=== PATIENT | male | born 1950 | race Caucasian/White ===

== ENCOUNTER 2018-03-14 07:05 | Emergency (ER) | payer MEDICARE, MEDICAID, SELFPAY ==
[2018-03-14 07:09] VITALS: BP 158/88; PULSE 86; RESP 16; TEMP 36.7; O2SAT 97
--- NOTE | 2018-03-14 07:41 | W.ED.GENAD ---
Discharge Plan Disposition Patient Disposition: HOME Discharge Details Chief Complaint: Orthopedic Clinical Impression: Injury of toe on right foot Primary Care Provider: Liz Gonzales ED Provider: Woo Henao Home Meds and New Rx's Prescriptions: Continue multivitamin [Daily Multi-Vitamin] 1 EACH tablet 1 tab DAILY RF: 0 atorvastatin [Lipitor] 20 MG tablet 80 mg PO DAILY RF: 0 aspirin [Aspir-81] 81 MG tablet,delayed release (DR/EC) 81 mg PO DAILY RF: 0 lisinopril [Zestril] 20 MG tablet 20 mg PO DAILY RF: 0 metoprolol succinate 25 MG tablet extended release 24 hr 25 mg PO DAILY RF: 0 magnesium 250 mg Tablet 1 tab PO DAILY RF: 0 Discharge Instructions Instructions: Toe Fracture (ED) Additional Instructions: Please take ibuprofen 400mg every 6 hours as needed for pain. Keep toes taped together for 3 weeks. If pain persists or worsens, return to the ER or see podiatry. Your blood pressure was slightly elevated today. Continue to monitor your blood pressure and follow-up with Dr. Bailey. Referrals: Parvin Bailey [ NON-[facility] STAFF PHYSICIAN] - Discharge Data Discharge Date/Time-TO BE ENTERED AT DEPARTURE: 03/14/18 07:43 Medical Decision Making 67yo m with left 3rd toe injury. Distal neuro intact. I recommended the patient have an xray to assess for fracture or other concerning disease. Patient declined xray or any other intervention or treatment. Patient verbalized understanding of my concern and has decisional making capacity to refuse treatment. Patient agreeable to neto taping. 3rd toe splint applied by me: taped to 2nd toe. N/V intact post splint application. Patient advised to wear stiff shoes. I offered crutches and patient refused. HPI General Mode of arrival: ambulatory. Date/Time Provider Initiated Documentation: 03/14/18 07:34. Limitations to Documentation: no limitations. Information obtained by: patient. HPI Narrative: 67yo m here with right 3rd toe injury. Patient notes that he stubbed his toe last night walking to the bathroom. Initially distal toe was angled laterally and painful. Patient pulled on toe and reduced it to normal aligment. Pain resolved. No associated numbness. Related Data Home Medications Medication Instructions Recorded Confirmed aspirin [Aspir-81] 81 mg PO DAILY 02/28/14 03/14/18 atorvastatin [Lipitor] 80 mg PO DAILY 02/28/14 03/14/18 multivitamin [Daily Multi-Vitamin] 1 tab DAILY 02/28/14 03/14/18 lisinopril [Zestril] 20 mg PO DAILY 12/01/17 03/14/18 metoprolol succinate 25 mg PO DAILY 12/01/17 03/14/18 magnesium 1 tab PO DAILY 03/14/18 03/14/18 Allergies Allergy/AdvReac Type Severity Reaction Status Date / Time No Known Allergies Allergy Unverified 12/01/17 08:19 General Stated Complaint: Orthopedic VANI: 4 Review of Systems Musculoskeletal Reports as per HPI [facility] Medical History Hypertension (Chronic) Social History Smoking/Tobacco Use Status: Former Tobacco Use Exam Const General: no acute distress Extrem Left lower extremity: foot (ttp mid 3rd digit with mild swelling and no deformity) Details: tenderness and other (distal sensation intact and able to wiggle 3rd toe) Course Vital Signs Temperature 36.7 C 03/14/18 07:09 Pulse 86 03/14/18 07:09 Respiratory Rate 16 03/14/18 07:09 Blood Pressure 158/88 H 03/14/18 07:09 Pulse Oximetry 97 03/14/18 07:09 Temperature 36.7 C 03/14/18 07:09 Temperature Source Temporal Artery Scan 03/14/18 07:09 Pulse 86 03/14/18 07:09 Respiratory Rate 16 03/14/18 07:09 Blood Pressure 158/88 H 03/14/18 07:09 Blood Pressure Position Sitting 03/14/18 07:09 Pulse Oximetry 97 03/14/18 07:09 Oxygen Delivery Method Room Air 03/14/18 07:09 Oxygen Flow Rate 0 03/14/18 07:09 Pain Level 0 03/14/18 07:09
--- NOTE | 2018-03-14 07:55 | ED.GENADUL_ITS ---
Discharge Plan Disposition Patient Disposition: HOME Discharge Details Chief Complaint: Orthopedic Clinical Impression: Injury of toe on right foot Primary Care Provider: Liz Gonzales ED Provider: Woo Henao Home Meds and New Rx's Prescriptions: Continue multivitamin [Daily Multi-Vitamin] 1 EACH tablet 1 tab DAILY RF: 0 atorvastatin [Lipitor] 20 MG tablet 80 mg PO DAILY RF: 0 aspirin [Aspir-81] 81 MG tablet,delayed release (DR/EC) 81 mg PO DAILY RF: 0 lisinopril [Zestril] 20 MG tablet 20 mg PO DAILY RF: 0 metoprolol succinate 25 MG tablet extended release 24 hr 25 mg PO DAILY RF: 0 magnesium 250 mg Tablet 1 tab PO DAILY RF: 0 Discharge Instructions Instructions: Toe Fracture (ED) Additional Instructions: Please take ibuprofen 400mg every 6 hours as needed for pain. Keep toes taped together for 3 weeks. If pain persists or worsens, return to the ER or see podiatry. Your blood pressure was slightly elevated today. Continue to monitor your blood pressure and follow-up with Dr. Bailey. Referrals: Parvin Bailey [ NON-[facility] STAFF PHYSICIAN] - Discharge Data Discharge Date/Time-TO BE ENTERED AT DEPARTURE: 03/14/18 07:43 Medical Decision Making 67yo m with left 3rd toe injury. Distal neuro intact. I recommended the patient have an xray to assess for fracture or other concerning disease. Patient declined xray or any other intervention or treatment. Patient verbalized understanding of my concern and has decisional making capacity to refuse treatment. Patient agreeable to neto taping. 3rd toe splint applied by me: taped to 2nd toe. N/V intact post splint application. Patient advised to wear stiff shoes. I offered crutches and patient refused. HPI General Mode of arrival: ambulatory . Date/Time Provider Initiated Documentation: 03/14/18 07:34 . Limitations to Documentation: no limitations . Information obtained by: patient . HPI Narrative: 67yo m here with right 3rd toe injury. Patient notes that he stubbed his toe last night walking to the bathroom. Initially distal toe was angled laterally and painful. Patient pulled on toe and reduced it to normal aligment. Pain resolved. No associated numbness. Related Data Home Medications Medication Instructions Recorded Confirmed aspirin [Aspir-81] 81 mg PO DAILY 02/28/14 03/14/18 atorvastatin [Lipitor] 80 mg PO DAILY 02/28/14 03/14/18 multivitamin [Daily Multi-Vitamin] 1 tab DAILY 02/28/14 03/14/18 lisinopril [Zestril] 20 mg PO DAILY 12/01/17 03/14/18 metoprolol succinate 25 mg PO DAILY 12/01/17 03/14/18 magnesium 1 tab PO DAILY 03/14/18 03/14/18 Allergies Allergy/AdvReac Type Severity Reaction Status Date / Time No Known Allergies Allergy Unverified 12/01/17 08:19 General Stated Complaint: Orthopedic VANI: 4 Review of Systems Musculoskeletal Reports as per HPI [facility] Medical History Hypertension (Chronic) Social History Smoking/Tobacco Use Status: Former Tobacco Use Exam Const General: no acute distress Extrem Left lower extremity: foot (ttp mid 3rd digit with mild swelling and no deformity) Details: tenderness and other (distal sensation intact and able to wiggle 3rd toe) Course Vital Signs Temperature 36.7 C 03/14/18 07:09 Pulse 86 03/14/18 07:09 Respiratory Rate 16 03/14/18 07:09 Blood Pressure 158/88 H 03/14/18 07:09 Pulse Oximetry 97 03/14/18 07:09 Temperature 36.7 C 03/14/18 07:09 Temperature Source Temporal Artery Scan 03/14/18 07:09 Pulse 86 03/14/18 07:09 Respiratory Rate 16 03/14/18 07:09 Blood Pressure 158/88 H 03/14/18 07:09 Blood Pressure Position Sitting 03/14/18 07:09 Pulse Oximetry 97 03/14/18 07:09 Oxygen Delivery Method Room Air 03/14/18 07:09 Oxygen Flow Rate 0 03/14/18 07:09 Pain Level 0 03/14/18 07:09
== END 2018-03-14 07:43 | disposition home or self-care (01) ==
LOC: ER 07:45
PROVIDERS: Emergency Provider Student in an Organized Health Care Education/Training Program
DX: S99.921A Unspecified injury of right foot, initial encounter (principal); W22.8XXA Striking against or struck by other objects, initial encounter; Z53.29 Procedure and treatment not carried out because of patient's decision for other reasons; I10 Essential (primary) hypertension
CPT/HCPCS: 99281; 99282

== ENCOUNTER 2018-03-14 15:39 | Emergency (ER) | payer MEDICARE, MEDICAID, SELFPAY ==
[2018-03-14 15:45] VITALS: BP 140/81; PULSE 63; RESP 18; TEMP 36.7; O2SAT 97
--- NOTE | 2018-03-14 16:01 | W.ED.GENAD ---
Discharge Plan Disposition Patient Disposition: HOME Condition: Good Discharge Details Chief Complaint: Orthopedic Clinical Impression: Toe fracture, right Primary Care Provider: Liz Gonzales ED Provider: Tobias Onofre Home Meds and New Rx's Prescriptions: Continue multivitamin [Daily Multi-Vitamin] 1 EACH tablet 1 tab DAILY RF: 0 atorvastatin [Lipitor] 20 MG tablet 80 mg PO DAILY RF: 0 aspirin [Aspir-81] 81 MG tablet,delayed release (DR/EC) 81 mg PO DAILY RF: 0 lisinopril [Zestril] 20 MG tablet 20 mg PO DAILY RF: 0 metoprolol succinate 25 MG tablet extended release 24 hr 25 mg PO DAILY RF: 0 magnesium 250 mg Tablet 1 tab PO DAILY RF: 0 Medical Decision Making 67 yo male states he hit his right foot at home while walking last night, did not fall or hit head or have other injuries. HAs had the toe neto taped. I suspect a toe fx and doesn't appear displaced. I offered an xray to confirm but after discussion about how even if it is broken there is no intervention normally done he declined at this time to have an xray. ADvised weight bearing as tolerated and f/u with pcp. He did not want to wait for instructions Differential Diagnosis right middle toe fx vs contusion HPI General Mode of arrival: ambulatory. Date/Time Provider Initiated Documentation: 03/14/18 15:52. Limitations to Documentation: no limitations. Information obtained by: patient. History of Present Illness 67 year old M presents to the emergency department with the chief complaint of right middle toe pain, described as moderate, with intensity rated at 4. Quality is described as aching, and is localized to the right and lower extremity. Patient reports no radiation. Patient started experiencing this day(s) (1) and it has been constant. No relieving factors improve symptom(s), No exacerbating factors reported . Patient notes no other symptoms.. Patient did receive the following treatments prior to arrival, none Related Data Home Medications Medication Instructions Recorded Confirmed aspirin [Aspir-81] 81 mg PO DAILY 02/28/14 03/14/18 atorvastatin [Lipitor] 80 mg PO DAILY 02/28/14 03/14/18 multivitamin [Daily Multi-Vitamin] 1 tab DAILY 02/28/14 03/14/18 lisinopril [Zestril] 20 mg PO DAILY 12/01/17 03/14/18 metoprolol succinate 25 mg PO DAILY 12/01/17 03/14/18 magnesium 1 tab PO DAILY 03/14/18 03/14/18 Allergies Allergy/AdvReac Type Severity Reaction Status Date / Time No Known Allergies Allergy Unverified 12/01/17 08:19 General Stated Complaint: Orthopedic VANI: 5 Review of Systems Review of Systems All systems reviewed & are unremarkable except as noted in HPI and below Constitutional Denies chills, Denies fever(s) and Denies weakness Eyes Denies loss of vision ENT Denies change in voice Cardiovascular Denies chest pain and Denies dyspnea Respiratory Denies dyspnea Gastrointestinal Denies abdominal pain, Denies nausea and Denies vomiting Genitourinary Denies dysuria Musculoskeletal Denies joint swelling Integumentary/Breasts Denies rash Neurologic Denies loss of vision and Denies weakness Psychiatric Denies depression Endocrine Denies cold intolerance and Denies heat intolerance Allergic/Immunologic Reports urticaria PFSH Medical History Hypertension (Chronic) Social History Smoking/Tobacco Use Status: Former Tobacco Use Exam Const General: no acute distress Orientation: alert HENMT Head: normal to inspection Ears: external ears normal General nose exam: external nose normal Mouth: moist mucous membranes Eyes General: appearance normal, both eyes and all related structures Neck Neck: normal visual inspection Resp Effort & Inspection: normal respiratory effort and able to speak in complete sentences Cardio Rate: regular rate Skin General skin exam: no rashes or lesions noted Neuro General: alert and oriented x3 Extrem General: full ROM, normal capillary refill and other (right middle toe pain, full rom, does have bruising, no other pain elsewhere) Psych Mental Status: mental status grossly normal Course Vital Signs Temperature 36.7 C 03/14/18 15:45 Pulse 63 03/14/18 15:45 Respiratory Rate 18 03/14/18 15:45 Blood Pressure 140/81 03/14/18 15:45 Pulse Oximetry 97 03/14/18 15:45 Temperature 36.7 C 03/14/18 15:45 Temperature Source Temporal Artery Scan 03/14/18 15:45 Pulse 63 03/14/18 15:45 Respiratory Rate 18 03/14/18 15:45 Respiratory Effort 03/14/18 15:51 Blood Pressure 140/81 03/14/18 15:45 Blood Pressure Position Sitting 03/14/18 15:45 Pulse Oximetry 97 03/14/18 15:45 Oxygen Delivery Method Room Air 03/14/18 15:45 Oxygen Flow Rate 0 03/14/18 15:45
[2018-03-14 16:04] VITALS: BP 133/80; PULSE 90; RESP 18; TEMP 36.8; O2SAT 99
--- NOTE | 2018-03-14 16:05 | ED.GENADUL_ITS ---
Discharge Plan Disposition Patient Disposition: HOME Condition: Good Discharge Details Chief Complaint: Orthopedic Clinical Impression: Toe fracture, right Primary Care Provider: Liz Gonzales ED Provider: Tobias Onofre Home Meds and New Rx's Prescriptions: Continue multivitamin [Daily Multi-Vitamin] 1 EACH tablet 1 tab DAILY RF: 0 atorvastatin [Lipitor] 20 MG tablet 80 mg PO DAILY RF: 0 aspirin [Aspir-81] 81 MG tablet,delayed release (DR/EC) 81 mg PO DAILY RF: 0 lisinopril [Zestril] 20 MG tablet 20 mg PO DAILY RF: 0 metoprolol succinate 25 MG tablet extended release 24 hr 25 mg PO DAILY RF: 0 magnesium 250 mg Tablet 1 tab PO DAILY RF: 0 Medical Decision Making 67 yo male states he hit his right foot at home while walking last night, did not fall or hit head or have other injuries. HAs had the toe neto taped. I suspect a toe fx and doesn't appear displaced. I offered an xray to confirm but after discussion about how even if it is broken there is no intervention normally done he declined at this time to have an xray. ADvised weight bearing as tolerated and f/u with pcp. He did not want to wait for instructions Differential Diagnosis right middle toe fx vs contusion HPI General Mode of arrival: ambulatory . Date/Time Provider Initiated Documentation: 03/14/18 15:52 . Limitations to Documentation: no limitations . Information obtained by: patient . History of Present Illness 67 year old M presents to the emergency department with the chief complaint of right middle toe pain, described as moderate, with intensity rated at 4. Quality is described as aching, and is localized to the right and lower extremity. Patient reports no radiation. Patient started experiencing this day(s) (1) and it has been constant. No relieving factors improve symptom(s) , No exacerbating factors reported . Patient notes no other symptoms.. Patient did receive the following treatments prior to arrival, none Related Data Home Medications Medication Instructions Recorded Confirmed aspirin [Aspir-81] 81 mg PO DAILY 02/28/14 03/14/18 atorvastatin [Lipitor] 80 mg PO DAILY 02/28/14 03/14/18 multivitamin [Daily Multi-Vitamin] 1 tab DAILY 02/28/14 03/14/18 lisinopril [Zestril] 20 mg PO DAILY 12/01/17 03/14/18 metoprolol succinate 25 mg PO DAILY 12/01/17 03/14/18 magnesium 1 tab PO DAILY 03/14/18 03/14/18 Allergies Allergy/AdvReac Type Severity Reaction Status Date / Time No Known Allergies Allergy Unverified 12/01/17 08:19 General Stated Complaint: Orthopedic VANI: 5 Review of Systems Review of Systems All systems reviewed & are unremarkable except as noted in HPI and below Constitutional Denies chills, Denies fever(s) and Denies weakness Eyes Denies loss of vision ENT Denies change in voice Cardiovascular Denies chest pain and Denies dyspnea Respiratory Denies dyspnea Gastrointestinal Denies abdominal pain, Denies nausea and Denies vomiting Genitourinary Denies dysuria Musculoskeletal Denies joint swelling Integumentary/Breasts Denies rash Neurologic Denies loss of vision and Denies weakness Psychiatric Denies depression Endocrine Denies cold intolerance and Denies heat intolerance Allergic/Immunologic Reports urticaria PFSH Medical History Hypertension (Chronic) Social History Smoking/Tobacco Use Status: Former Tobacco Use Exam Const General: no acute distress Orientation: alert HENMT Head: normal to inspection Ears: external ears normal General nose exam: external nose normal Mouth: moist mucous membranes Eyes General: appearance normal, both eyes and all related structures Neck Neck: normal visual inspection Resp Effort & Inspection: normal respiratory effort and able to speak in complete sentences Cardio Rate: regular rate Skin General skin exam: no rashes or lesions noted Neuro General: alert and oriented x3 Extrem General: full ROM, normal capillary refill and other (right middle toe pain, full rom, does have bruising, no other pain elsewhere) Psych Mental Status: mental status grossly normal Course Vital Signs Temperature 36.7 C 03/14/18 15:45 Pulse 63 03/14/18 15:45 Respiratory Rate 18 03/14/18 15:45 Blood Pressure 140/81 03/14/18 15:45 Pulse Oximetry 97 03/14/18 15:45 Temperature 36.7 C 03/14/18 15:45 Temperature Source Temporal Artery Scan 03/14/18 15:45 Pulse 63 03/14/18 15:45 Respiratory Rate 18 03/14/18 15:45 Respiratory Effort 03/14/18 15:51 Blood Pressure 140/81 03/14/18 15:45 Blood Pressure Position Sitting 03/14/18 15:45 Pulse Oximetry 97 03/14/18 15:45 Oxygen Delivery Method Room Air 03/14/18 15:45 Oxygen Flow Rate 0 03/14/18 15:45
== END 2018-03-14 16:08 | disposition home or self-care (01) ==
LOC: ER 16:36
PROVIDERS: Emergency Provider Emergency Medicine
DX: S92.911A Unspecified fracture of right toe(s), initial encounter for closed fracture (principal); X58.XXXA Exposure to other specified factors, initial encounter
CPT/HCPCS: 99282

== ENCOUNTER 2018-05-03 08:58 | Outpatient (REF) | payer MEDICARE, MEDICAID, SELFPAY ==
[2018-05-03 12:19] LABS: HCT 41.5 % (40.0-50.0); Mean Corp. HGB Concentration 33.7 g/dL (32.0-36.0); Mean Corpuscular Hemoglobin 31.3 pg (27.0-33.0); Mean Corpuscular Volume 92.8 fL (80-95); Platelet Count 286 x1000/uL (130-400); RBC 4.47 m/cumm (4.50-6.00); RBC Distribution Width 12.3 % (11.8-14.1); White Blood Cell Count 6.46 k/cumm (4.4-10.8)
[2018-05-03 12:39] LABS: ALT 39 U/L (12-78); AST 31 U/L (15-37); Albumin 4.2 g/dL (3.4-5.0); Alkaline Phosphatase 75 U/L (46-116); Anion Gap 5.7 mmol/L (3-11); BUN 13 mg/dL (7-18); Bilirubin, Total 0.7 mg/dL (0.2-1.0); CO2 32.3 mmol/L (21.0-32.0); CREATININE 1.03 mg/dL (0.70-1.30); Calcium 9.1 mg/dL (8.5-10.1); Chloride 103 mmol/L (98-107); Cholesterol 130 mg/dL (50-200); Glucose 102 mg/dL (70-100); HDL Cholesterol 38 mg/dL (40-60); LDL CHOLESTEROL 80 mg/dL (<100); Potassium 4.4 mmol/L (3.5-5.1); Sodium 141 mmol/L (136-145); Total Protein 7.2 g/dL (6.4-8.2); Triglyceride 102 mg/dL (30-150)
== END 2018-05-03 09:18 ==
LOC: NCHCN 08:58
PROVIDERS: Visit Provider Family Medicine
DX: I10 Essential (primary) hypertension (principal); E78.5 Hyperlipidemia, unspecified; I25.10 Atherosclerotic heart disease of native coronary artery without angina pectoris
CPT/HCPCS: 80053; 80061; 83721; 85027